=== PATIENT | female | born 1970 | race African-American/Black ===

== ENCOUNTER 2016-11-03 19:01 | Emergency (ER) | payer OTHER ==
[~2016-11-03] VITALS: Ht 167.6 cm; Wt 86.2 kg
[~2016-11-03 19:01] MED LIST: ACCUNEB SO1.25 MG/1 INH; ALLERGY RELIEF10 M1 PO; BENADRYL25 MG PO; BREO ELLIPTA 21 EACH IH; METFORMIN HCL500 MG PO; PREDNISONE 20 M20 MG PO; VENTOLIN HFA 1818 GM INH
[2016-11-03] MEDS ORDERED: NAPROSYN500 MG PO (21:49)
[2016-11-03] MEDS ORDERED: NORFLEX100 MG PO (21:49)
[2016-11-03 21:55] VITALS: BP 128/64
== END 2016-11-03 21:55 | disposition home or self-care (01) ==
LOC: ER 19:01
DX: R51 Headache (principal); J45.909 Unspecified asthma, uncomplicated; E11.9 Type 2 diabetes mellitus without complications; Z88.1 Allergy status to other antibiotic agents; Z88.5 Allergy status to narcotic agent